=== PATIENT | female | born 1985 | race Hispanic/Latino ===

== ENCOUNTER 2018-06-18 02:56 | Inpatient (IN) | payer OTHER ==
[2018-06-18] MEDS ORDERED: Sodium Chloride 0.9% 1,000 ML IV STA (04:11)
[2018-06-18] MEDS ORDERED: Iohexol 240 (50 ml) PO ONE (04:15)
--- NOTE | 2018-06-18 04:21 | ED PDOC ---
HPI: Abdomen Chief Complaint (Provider): abdominal pain History Per: Patient History/Exam Limitations: no limitations Onset/Duration Of Symptoms: Hrs Current Symptoms Are (Timing): Still Present Location Of Pain/Discomfort: Epigastric, Periumbilical Associated Symptoms: Nausea, Vomiting Last Bowel Movement: Today Additional Complaint(s): 32 y/o female presents for evaluation of abdominal pain x 12 hours. Associated multiple episodes of vomiting. Patient states symptoms started shortly after eating lunch at work (salad, appetizers), and she has not been able to keep anything down since then. Denies fever, cough, congestion, changes in bowel movements, urinary symptoms, recent travel, sick contacts. <Noemy Garcia - Last Filed: 06/18/18 05:57> <Bartolo Zaragoza - Last Filed: 06/18/18 06:29> Time Seen by Provider: 06/18/18 04:00 Chief Complaint (Nursing): Abdominal Pain Past Medical History Reviewed: Historical Data, Nursing Documentation, Vital Signs Vital Signs: Last Vital Signs Temp 98.6 F 06/18/18 03:25 Pulse 86 06/18/18 03:25 Resp 16 06/18/18 03:25 BP 155/87 H 06/18/18 03:25 Pulse Ox 99 06/18/18 03:25 Primary Care Provider: Brayden Del Rosario - Medical History PMH: No Chronic Diseases - Surgical History Surgical History: No Surg Hx - Family History Family History: States: No Known Family Hx - Living Arrangements Living Arrangements: With Family <Noemy Garcia - Last Filed: 06/18/18 05:57> Vital Signs: Last Vital Signs Temp 98.6 F 06/18/18 03:25 Pulse 86 06/18/18 03:25 Resp 16 06/18/18 03:25 BP 155/87 H 06/18/18 03:25 Pulse Ox 99 06/18/18 05:57 <Bartolo Zaragoza - Last Filed: 06/18/18 06:29> - Allergies Allergies/Adverse Reactions: Allergies Allergy/AdvReac Type Severity Reaction Status Date / Time No Known Allergies Allergy Verified 06/18/18 04:11 Review of Systems ROS Statement: Except As Marked, All Systems Reviewed And Found Negative Gastrointestinal: Positive for: Nausea, Vomiting, Abdominal Pain <Noemy Garcia - Last Filed: 06/18/18 05:57> Physical Exam - Reviewed Nursing Documentation Reviewed: Yes Vital Signs Reviewed: Yes - Physical Exam Appears: Positive for: Well, Non-toxic, No Acute Distress Head Exam: Positive for: ATRAUMATIC, NORMAL INSPECTION, NORMOCEPHALIC Skin: Positive for: Normal Color Eye Exam: Positive for: Normal appearance ENT: Positive for: Normal ENT Inspection Cardiovascular/Chest: Positive for: Regular Rate, Rhythm Respiratory: Positive for: Normal Breath Sounds Gastrointestinal/Abdominal: Positive for: Bowel Sounds, Soft, Tenderness (periumbilical, epigastric) Back: Positive for: Normal Inspection Extremity: Positive for: Normal ROM Neurological/Psych: Positive for: Awake, Alert, Oriented (x3) <JoseNoemy C - Last Filed: 06/18/18 05:57> - Laboratory Results Result Diagrams: 06/18/18 04:42 06/18/18 04:42 - ECG O2 Sat by Pulse Oximetry: 99 - Progress ED Course And Treament: -upreg -cbc -cmp -lipase -urinalysis -CT abd/pelvis -IV NS bolus -IV zofran -IV pepcid <Noemy Garcia C - Last Filed: 06/18/18 05:57> - Laboratory Results Result Diagrams: 06/18/18 04:42 06/18/18 04:42 Lab Results: Total Bilirubin 1.1 mg/dl (0.2-1.3) 06/18/18 04:42 AST 99 U/L (14-36) H 06/18/18 04:42 ALT 59 U/L (9-52) H 06/18/18 04:42 Alkaline Phosphatase 41 U/L (38-126) 06/18/18 04:42 Total Protein 7.3 G/DL (6.3-8.2) 06/18/18 04:42 Albumin 4.3 g/dL (3.5-5.0) 06/18/18 04:42 Globulin 3.1 gm/dL (2.2-3.9) 06/18/18 04:42 Albumin/Globulin Ratio 1.4 (1.0-2.1) 06/18/18 04:42 Lipase 47 U/L (23-300) 06/18/18 04:42 Urine Color Jillian (YELLOW) 06/18/18 04:32 Urine Clarity Slighty-cloudy (Clear) 06/18/18 04:32 Urine pH 6.0 (5.0-8.0) 06/18/18 04:32 Ur Specific [place] 1.028 (1.003-1.030) 06/18/18 04:32 Urine Protein Negative mg/dL (NEGATIVE) 06/18/18 04:32 Urine Glucose (UA) Neg mg/dL (NEGATIVE) 06/18/18 04:32 Urine Ketones 20 mg/dL (NEGATIVE) 06/18/18 04:32 Urine Blood Negative (NEGATIVE) 06/18/18 04:32 Urine Nitrate Negative (NEGATIVE) 06/18/18 04:32 Urine Bilirubin Negative (NEGATIVE) 06/18/18 04:32 Urine Urobilinogen 2.0 mg/dL (0.2-1.0) H 06/18/18 04:32 Ur Leukocyte Esterase Neg Maxi/uL (Negative) 06/18/18 04:32 Urine RBC (Auto) 4 /hpf (0-3) H 06/18/18 04:32 Urine Microscopic WBC 2 /hpf (0-5) 06/18/18 04:32 Ur Squamous Epith Cells 4 /hpf (0-5) 06/18/18 04:32 Urine Bacteria Occ (<OCC) H 06/18/18 04:32 <Bartolo Zaragoza - Last Filed: 06/18/18 06:29> Medical Decision Making Medical Decision Makin:00 Patient signed out to Dr. Van pending CT, re-evaluation and final disposition. <Bartolo Zaragoza - Last Filed: 06/18/18 06:29> Disposition - Disposition Disposition Time: 06:00 Patient Signed Over To: Bartolo Zaragoza Handoff Comments: pending CT, re-eval <Noemy Garcia - Last Filed: 06/18/18 05:57> - Patient ED Disposition Is Patient to be Admitted: Transfer of Care - Disposition Disposition: Transfer of Care Disposition Time: 07:00 Patient Signed Over To: Colton Van Handoff Comments: pending CT and re-evaluation <Bartolo Zaragoza - Last Filed: 06/18/18 06:29> - Clinical Impression Clinical Impression: Abdominal pain - Disposition Referrals: Brayden Del Rosario MD [Primary Care Provider] - Condition: STABLE Forms: [employer] (French)
[2018-06-18 05:12] LABS: BASO % 0.1 % (0.0-2.0); HEMOGLOBIN 13.4 g/dL (12.0-16.0); LYMPH # 0.9 K/uL (1.0-4.3); LYMPH % 8.1 % (20.0-40.0); MEAN CELL VOLUME 96.6 fl (81.0-99.0); MEAN CORPUSCULAR HEMOGLOBIN 33.5 pg (27.0-31.0); MEAN CORPUSCULAR HGB CONC 34.6 g/dL (33.0-37.0); MEAN PLATELET VOLUME 8.4 fl (7.2-11.7); MONO # 0.5 K/uL (0.0-0.8); MONO % 4.3 % (0.0-10.0); NEUT # 9.5 K/uL (1.8-7.0); NEUT % 87.5 % (50.0-75.0); PLATELET COUNT 250 K/uL (130-400); RBC 3.99 Mil/uL (3.80-5.20); RED CELL DISTRIBUTION WIDTH 12.9 % (11.5-14.5); WHITE BLOOD COUNT 10.9 K/uL (4.8-10.8)
[2018-06-18 05:17] LABS: SQUAMOUS EPITHIAL 4 /hpf (0-5); URINE BACTERIA OCC (<OCC); URINE BILIRUBIN NEGATIVE (NEGATIVE); URINE BLOOD NEGATIVE (NEGATIVE); URINE CLARITY SLIGHTY-CLOUDY (Clear); URINE COLOR AMBER (YELLOW); URINE GLUCOSE (UA) NEG (NEGATIVE); URINE LEUKOCYTE ESTERASE NEG Leu/uL (Negative); URINE PROTEIN NEGATIVE (NEGATIVE)
[2018-06-18 05:20] LABS: ALB/GLOB RATIO 1.4 (1.0-2.1); ALBUMIN 4.3 g/dL (3.5-5.0); ALT/SGPT 59 U/L (9-52); AST/SGOT 99 U/L (14-36); BLOOD UREA NITROGEN 10 mg/dl (7-17); CALCIUM 9.3 mg/dL (8.4-10.2); GFR NON-AFRICAN AMERICAN > 60; LIPASE 47 U/L (23-300)
[2018-06-18] MEDS ORDERED: Sodium Chloride 0.9% 50 ML IV ONE (06:04)
[2018-06-18] MEDS ORDERED: Iohexol 300 100 ML IJ ONE (06:04)
[2018-06-18 06:58] LABS: LYMPHOCYTE 3 % (20-50); MONOCYTE 7 % (0-10); NEUTROPHIL 90 % (42-75); PLATELET ESTIMATE NORMAL (NORMAL); TOTAL CELLS COUNTED 100
[2018-06-18 06:59] LABS: HYPOCHROMIC SLIGHT; LARGE PLATELETS PRESENT; STOMATOCYTES SLIGHT
--- NOTE | 2018-06-18 07:04 | ED PDOC ---
- Laboratory Results Result Diagrams: 06/18/18 04:42 06/18/18 04:42 Lab Results: Total Bilirubin 1.1 mg/dl (0.2-1.3) 06/18/18 04:42 AST 99 U/L (14-36) H 06/18/18 04:42 ALT 59 U/L (9-52) H 06/18/18 04:42 Alkaline Phosphatase 41 U/L (38-126) 06/18/18 04:42 Total Protein 7.3 G/DL (6.3-8.2) 06/18/18 04:42 Albumin 4.3 g/dL (3.5-5.0) 06/18/18 04:42 Globulin 3.1 gm/dL (2.2-3.9) 06/18/18 04:42 Albumin/Globulin Ratio 1.4 (1.0-2.1) 06/18/18 04:42 Lipase 47 U/L (23-300) 06/18/18 04:42 Urine Color Jillian (YELLOW) 06/18/18 04:32 Urine Clarity Slighty-cloudy (Clear) 06/18/18 04:32 Urine pH 6.0 (5.0-8.0) 06/18/18 04:32 Ur Specific [place] 1.028 (1.003-1.030) 06/18/18 04:32 Urine Protein Negative mg/dL (NEGATIVE) 06/18/18 04:32 Urine Glucose (UA) Neg mg/dL (NEGATIVE) 06/18/18 04:32 Urine Ketones 20 mg/dL (NEGATIVE) 06/18/18 04:32 Urine Blood Negative (NEGATIVE) 06/18/18 04:32 Urine Nitrate Negative (NEGATIVE) 06/18/18 04:32 Urine Bilirubin Negative (NEGATIVE) 06/18/18 04:32 Urine Urobilinogen 2.0 mg/dL (0.2-1.0) H 06/18/18 04:32 Ur Leukocyte Esterase Neg Maxi/uL (Negative) 06/18/18 04:32 Urine RBC (Auto) 4 /hpf (0-3) H 06/18/18 04:32 Urine Microscopic WBC 2 /hpf (0-5) 06/18/18 04:32 Ur Squamous Epith Cells 4 /hpf (0-5) 06/18/18 04:32 Urine Bacteria Occ (<OCC) H 06/18/18 04:32 - ECG O2 Sat by Pulse Oximetry: 99 - Progress Re-evaluation Time: 07:30 Condition: Re-examined, Improved (patient is feeling improved. Less pain. Comfortable. VS stable. ) Medical Decision Making Medical Decision Makin: Patient signed out to Dr. Van. Pending CT results, possible abdominal ultrasound. 0750: CT SCAN OF THE ABDOMEN AND PELVIS WITH CONTRAST. CLINICAL HISTORY: Abdominal pain. TECHNIQUE: Multiple axial and coronal CT images were obtained through the abdomen and pelvis after administration of intravenous and oral contrast material. COMMENTS: Diffuse thickening of the bladder, probably mild cystitis. Cholelithiasis. Diffuse thickening and enhancement of the wall of the gallbladder, probably mild acute cholecystitis. Uncomplicated colonic diverticulosis. The liver is of uniform attenuation without mass or defect. There is no intra or extrahepatic biliary ductal dilatation. The spleen is normal. The pancreas is of normal contour and attenuation characteristics. There is no evidence of adrenal mass. Both kidneys demonstrate prompt and equal nephrograms. The kidneys are normal in size, shape and configuration. There is no evidence of renal or ureteral mass. No renal or ureteral calculi are identified. There is no hydroureter or hydronephrosis. No evidence for appendicitis. There is no bowel wall thickening. No evidence for small or large bowel obstruction. There is no evidence of abdominal ascites or lymphadenopathy. There is no evidence of intrinsic or extrinsic bladder mass. There is no pelvic ascites or lymphadenopathy. Images of the lung bases show no evidence of pleural or parenchymal mass. There are no pleural effusions. The bony structures are free of lytic or blastic lesions. IMPRESSION: Diffuse thickening of the bladder, probably mild cystitis. Cholelithiasis. Diffuse thickening and enhancement of the wall of the gallbladder, probably mild acute cholecystitis. Uncomplicated colonic diverticulosis. 0800 Discussed with surgical technologist who will see patient in ED and discussed with Dr Jonathan hayward. Discussed with MARTHA Braga for admission. Disposition Discussed With : Shivam Braga Doctor Will See Patient In The: Hospital Counseled Patient/Family Regarding: Studies Performed (acute chioel), Diagnosis - Clinical Impression Clinical Impression: Abdominal pain, Acute cholecystitis, Sepsis - POA Present On Arrival: None - Disposition Disposition: Admitted as In-Patient Disposition Time: 07:50 Condition: FAIR
[2018-06-18] MEDS ORDERED: Piperacillin/Tazobact 3.375 GM in Sodium Chloride 0.9% 100 ML IVPB STA (07:52)
[2018-06-18] MEDS ORDERED: Piperacillin/Tazobact 3.375 gm Inj IVPB ONE (08:08)
[2018-06-18 08:19] LABS: VENOUS BLOOD GAS BASE EXCESS 3.3 mmol/L (0.0-2.0); VENOUS BLOOD GAS PCO2 48 mmHg (40-60); VENOUS BLOOD GAS PO2 26 mm/Hg (30-55); VENOUS BLOOD PH 7.39 (7.32-7.43)
--- NOTE | 2018-06-18 08:39 | CP.PCM.CON ---
<Mulugeta Calzada - Last Filed: 06/18/18 08:45> History of Present Illness - History of Present Illness History of Present Illness: General Surgery Consult for Dr. Castillo Reason for consult: abd pain, n/v suspected acute cholecystitis 32 F with no significant PMH presents to [facility] for complaint of epigastric abd pain and nausea/vomiting. Patient seen and evaluatyed in the ED. Patient states that yesterday she went to event for work where they had various appetizers. About an hour after the meal patient developed the abd pain and became nauseous. Later she tried to eat a salad but was unable to complete it. At that time, developed multiple episodes of nausea/vomiting. Patient ubered home from work. At home, patient and nausea/vomiting continued. Patient tried to eat a bagel around 8pm and it worsened her symptoms. Patient state that symptoms persisted until 2:45 AM today then came into ED. Patient stated pain is constant and sharp in epigastrium radiating to RUQ. Denies fevers but admits chills. Denies cp, SOB, palpitations, diarrhea, constipation, urinary symptoms. PMH: denies PSH: denies ALL: NKDA Social: control patch, denies tobacc/illicit drug use, occasional ETOH Review of Systems - Review of Systems All systems: reviewed and no additional remarkable complaints except (as per HPI) Past Patient History - Past Social History Smoking Status: Never Smoked - PSYCHIATRIC Hx Substance Use: No - SURGICAL HISTORY Hx Surgeries: No Meds Allergies/Adverse Reactions: Allergies Allergy/AdvReac Type Severity Reaction Status Date / Time No Known Allergies Allergy Verified 06/18/18 04:11 - Medications Medications: Current Medications Piperacillin Sod/Tazobactam (Sod 3.375 gm/ Sodium Chloride) 100 mls @ 100 mls/hr IVPB STAT STA; Protocol Stop: 06/18/18 08:51 Last Admin: 06/18/18 08:17 Dose: 100 mls/hr Lactated Ringer's (Lactated Ringer's) 1,000 mls @ 125 mls/hr IV .Q8H DORIE Piperacillin Sod/Tazobactam (Sod 3.375 gm/ Sodium Chloride) 100 mls @ 100 mls/hr IVPB Q6H DORIE; Protocol Morphine Sulfate (Morphine) 2 mg IVP Q4 PRN PRN Reason: Pain, severe (8-10) Ondansetron HCl (Zofran Inj) 4 mg IVP Q4 PRN PRN Reason: Nausea/Vomiting Physical Exam - Constitutional Appears: Non-toxic, No Acute Distress - Head Exam Head Exam: ATRAUMATIC, NORMOCEPHALIC - Eye Exam Eye Exam: EOMI, Normal appearance Pupil Exam: PERRL - ENT Exam ENT Exam: Mucous Membranes Moist - Respiratory Exam Respiratory Exam: NORMAL BREATHING PATTERN - Cardiovascular Exam Cardiovascular Exam: REGULAR RHYTHM - GI/Abdominal Exam GI & Abdominal Exam: Normal Bowel Sounds, Soft, Tenderness (RUQ/epigastric). absent: Distended, Firm, Guarding, Hernia, Rebound, Rigid - Extremities Exam Extremities exam: Positive for: normal capillary refill, pedal pulses present - Back Exam Back exam: absent: CVA tenderness (L), CVA tenderness (R) - Neurological Exam Neurological exam: Alert, CN II-XII Intact, Oriented x3 - Psychiatric Exam Psychiatric exam: Normal Affect, Normal Mood - Skin Skin Exam: Dry, Intact, Normal Color, Warm Results - Vital Signs Recent Vital Signs: Last Vital Signs Temp 98.7 F 06/18/18 08:12 Pulse 72 06/18/18 08:12 Resp 16 06/18/18 08:12 BP 120/89 06/18/18 08:12 Pulse Ox 99 06/18/18 08:14 - Labs Result Diagrams: 06/18/18 04:42 06/18/18 04:42 Labs: Laboratory Results - last 24 hr 06/18/18 06/18/18 06/18/18 04:32 04:42 04:42 WBC 10.9 H RBC 3.99 Hgb 13.4 Hct 38.6 MCV 96.6 MCH 33.5 H MCHC 34.6 RDW 12.9 Plt Count 250 MPV 8.4 Neut % (Auto) 87.5 H Lymph % (Auto) 8.1 L Desha % (Auto) 4.3 Eos % (Auto) 0.0 Baso % (Auto) 0.1 Neut # (Auto) 9.5 H Lymph # (Auto) 0.9 L Desha # (Auto) 0.5 Eos # (Auto) 0.0 Baso # (Auto) 0.0 Neutrophils % (Manual) 90 H Lymphocytes % (Manual) 3 L Monocytes % (Manual) 7 Platelet Estimate Normal Large Platelets Present Hypochromasia (manual) Slight Stomatocytes Slight pO2 VBG pH VBG pCO2 VBG HCO3 VBG Total CO2 VBG O2 Sat (Calc) VBG Base Excess VBG Potassium Glucose Lactate FiO2 Sodium 136 Potassium 3.9 Chloride 100 Carbon Dioxide 27 Anion Gap 13 BUN 10 Creatinine 0.5 L Est GFR ( Amer) > 60 Est GFR (Non-Af Amer) > 60 Random Glucose 120 H Calcium 9.3 Total Bilirubin 1.1 AST 99 H ALT 59 H Alkaline Phosphatase 41 Total Protein 7.3 Albumin 4.3 Globulin 3.1 Albumin/Globulin Ratio 1.4 Lipase 47 Venous Blood Potassium Urine Color Jillian Urine Clarity Slighty-cloudy Urine pH 6.0 Ur Specific [place] 1.028 Urine Protein Negative Urine Glucose (UA) Neg Urine Ketones 20 Urine Blood Negative Urine Nitrate Negative Urine Bilirubin Negative Urine Urobilinogen 2.0 H Ur Leukocyte Esterase Neg Urine RBC (Auto) 4 H Urine Microscopic WBC 2 Ur Squamous Epith Cells 4 Urine Bacteria Occ H 06/18/18 07:53 WBC RBC Hgb Hct MCV MCH MCHC RDW Plt Count MPV Neut % (Auto) Lymph % (Auto) Desha % (Auto) Eos % (Auto) Baso % (Auto) Neut # (Auto) Lymph # (Auto) Desha # (Auto) Eos # (Auto) Baso # (Auto) Neutrophils % (Manual) Lymphocytes % (Manual) Monocytes % (Manual) Platelet Estimate Large Platelets Hypochromasia (manual) Stomatocytes pO2 26 L VBG pH 7.39 VBG pCO2 48 VBG HCO3 26.2 VBG Total CO2 30.6 H VBG O2 Sat (Calc) 52.7 VBG Base Excess 3.3 H VBG Potassium 4.3 Glucose 111 H Lactate 0.8 FiO2 21.0 Sodium 137.0 Potassium Chloride 105.0 Carbon Dioxide Anion Gap BUN Creatinine Est GFR ( Amer) Est GFR (Non-Af Amer) Random Glucose Calcium Total Bilirubin AST ALT Alkaline Phosphatase Total Protein Albumin Globulin Albumin/Globulin Ratio Lipase Venous Blood Potassium 4.3 Urine Color Urine Clarity Urine pH Ur Specific [place] Urine Protein Urine Glucose (UA) Urine Ketones Urine Blood Urine Nitrate Urine Bilirubin Urine Urobilinogen Ur Leukocyte Esterase Urine RBC (Auto) Urine Microscopic WBC Ur Squamous Epith Cells Urine Bacteria Assessment & Plan - Assessment and Plan (Free Text) Assessment: 32 F with RUQ/epigastric abd pain with CT findings of thickened gB wall and cholelithiasis Plan: -NPO -IVF -IV abx -PAin contorl -Antiemtics PRN -f/u ABUS -Possibly acute cholecystitis -Possible OR for laparoscopic cholecystectomy -Further recs as per Dr. Jonathan Calzada PGY2 - Date & Time Date: 06/18/18 Time: 08:48 <Ezequiel Hutson - Last Filed: 06/18/18 11:15> Meds - Medications Medications: Current Medications Lactated Ringer's (Lactated Ringer's) 1,000 mls @ 125 mls/hr IV .Q8H DORIE Ampicillin Sodium/Sulbactam (Sodium 1.5 gm/ Sodium Chloride) 100 mls @ 100 mls/hr IVPB Q6 DORIE; Protocol Morphine Sulfate (Morphine) 2 mg IVP Q4 PRN PRN Reason: Pain, severe (8-10) Ondansetron HCl (Zofran Inj) 4 mg IVP Q4 PRN PRN Reason: Nausea/Vomiting Results - Vital Signs Recent Vital Signs: Last Vital Signs Temp 98.7 F 06/18/18 08:44 Pulse 72 06/18/18 08:44 Resp 16 06/18/18 08:44 BP 120/89 06/18/18 08:44 Pulse Ox 99 06/18/18 10:56 - Labs Result Diagrams: 06/18/18 04:42 06/18/18 04:42 Labs: Laboratory Results - last 24 hr 06/18/18 06/18/18 06/18/18 04:32 04:42 04:42 WBC 10.9 H RBC 3.99 Hgb 13.4 Hct 38.6 MCV 96.6 MCH 33.5 H MCHC 34.6 RDW 12.9 Plt Count 250 MPV 8.4 Neut % (Auto) 87.5 H Lymph % (Auto) 8.1 L Desha % (Auto) 4.3 Eos % (Auto) 0.0 Baso % (Auto) 0.1 Neut # (Auto) 9.5 H Lymph # (Auto) 0.9 L Desha # (Auto) 0.5 Eos # (Auto) 0.0 Baso # (Auto) 0.0 Neutrophils % (Manual) 90 H Lymphocytes % (Manual) 3 L Monocytes % (Manual) 7 Platelet Estimate Normal Large Platelets Present Hypochromasia (manual) Slight Stomatocytes Slight PT INR APTT pO2 VBG pH VBG pCO2 VBG HCO3 VBG Total CO2 VBG O2 Sat (Calc) VBG Base Excess VBG Potassium Glucose Lactate FiO2 Sodium 136 Potassium 3.9 Chloride 100 Carbon Dioxide 27 Anion Gap 13 BUN 10 Creatinine 0.5 L Est GFR ( Amer) > 60 Est GFR (Non-Af Amer) > 60 Random Glucose 120 H Calcium 9.3 Total Bilirubin 1.1 AST 99 H ALT 59 H Alkaline Phosphatase 41 Total Protein 7.3 Albumin 4.3 Globulin 3.1 Albumin/Globulin Ratio 1.4 Lipase 47 Venous Blood Potassium Urine Color Jillian Urine Clarity Slighty-cloudy Urine pH 6.0 Ur Specific [place] 1.028 Urine Protein Negative Urine Glucose (UA) Neg Urine Ketones 20 Urine Blood Negative Urine Nitrate Negative Urine Bilirubin Negative Urine Urobilinogen 2.0 H Ur Leukocyte Esterase Neg Urine RBC (Auto) 4 H Urine Microscopic WBC 2 Ur Squamous Epith Cells 4 Urine Bacteria Occ H Blood Type Antibody Screen BBK History Checked 06/18/18 06/18/18 06/18/18 07:53 09:19 10:20 WBC RBC Hgb Hct MCV MCH MCHC RDW Plt Count MPV Neut % (Auto) Lymph % (Auto) Desha % (Auto) Eos % (Auto) Baso % (Auto) Neut # (Auto) Lymph # (Auto) Desha # (Auto) Eos # (Auto) Baso # (Auto) Neutrophils % (Manual) Lymphocytes % (Manual) Monocytes % (Manual) Platelet Estimate Large Platelets Hypochromasia (manual) Stomatocytes PT 11.9 INR 1.0 APTT 26.5 pO2 26 L VBG pH 7.39 VBG pCO2 48 VBG HCO3 26.2 VBG Total CO2 30.6 H VBG O2 Sat (Calc) 52.7 VBG Base Excess 3.3 H VBG Potassium 4.3 Glucose 111 H Lactate 0.8 FiO2 21.0 Sodium 137.0 Potassium Chloride 105.0 Carbon Dioxide Anion Gap BUN Creatinine Est GFR ( Amer) Est GFR (Non-Af Amer) Random Glucose Calcium Total Bilirubin AST ALT Alkaline Phosphatase Total Protein Albumin Globulin Albumin/Globulin Ratio Lipase Venous Blood Potassium 4.3 Urine Color Urine Clarity Urine pH Ur Specific [place] Urine Protein Urine Glucose (UA) Urine Ketones Urine Blood Urine Nitrate Urine Bilirubin Urine Urobilinogen Ur Leukocyte Esterase Urine RBC (Auto) Urine Microscopic WBC Ur Squamous Epith Cells Urine Bacteria Blood Type A POSITIVE Antibody Screen Negative BBK History Checked No verified bt <Rafael Burrell - Last Filed: 06/18/18 11:32> History of Present Illness - History of Present Illness History of Present Illness: Patient was seen and examined at the bedside. Agree with resident's note above. Meds - Medications Medications: Current Medications Lactated Ringer's (Lactated Ringer's) 1,000 mls @ 125 mls/hr IV .Q8H DORIE Ampicillin Sodium/Sulbactam (Sodium 1.5 gm/ Sodium Chloride) 100 mls @ 100 mls/hr IVPB Q6 DORIE; Protocol Morphine Sulfate (Morphine) 2 mg IVP Q4 PRN PRN Reason: Pain, severe (8-10) Ondansetron HCl (Zofran Inj) 4 mg IVP Q4 PRN PRN Reason: Nausea/Vomiting Physical Exam - GI/Abdominal Exam GI & Abdominal Exam: Normal Bowel Sounds, Soft Additional comments: epigastric/RUQ tenderness, ND, no rebound, no guarding Results - Vital Signs Recent Vital Signs: Last Vital Signs Temp 98.7 F 06/18/18 08:44 Pulse 72 06/18/18 08:44 Resp 16 06/18/18 08:44 BP 120/89 06/18/18 08:44 Pulse Ox 99 06/18/18 10:56 - Labs Result Diagrams: 06/18/18 04:42 06/18/18 04:42 Labs: Laboratory Results - last 24 hr 06/18/18 06/18/18 06/18/18 04:32 04:42 04:42 WBC 10.9 H RBC 3.99 Hgb 13.4 Hct 38.6 MCV 96.6 MCH 33.5 H MCHC 34.6 RDW 12.9 Plt Count 250 MPV 8.4 Neut % (Auto) 87.5 H Lymph % (Auto) 8.1 L Desha % (Auto) 4.3 Eos % (Auto) 0.0 Baso % (Auto) 0.1 Neut # (Auto) 9.5 H Lymph # (Auto) 0.9 L Desha # (Auto) 0.5 Eos # (Auto) 0.0 Baso # (Auto) 0.0 Neutrophils % (Manual) 90 H Lymphocytes % (Manual) 3 L Monocytes % (Manual) 7 Platelet Estimate Normal Large Platelets Present Hypochromasia (manual) Slight Stomatocytes Slight PT INR APTT pO2 VBG pH VBG pCO2 VBG HCO3 VBG Total CO2 VBG O2 Sat (Calc) VBG Base Excess VBG Potassium Glucose Lactate FiO2 Sodium 136 Potassium 3.9 Chloride 100 Carbon Dioxide 27 Anion Gap 13 BUN 10 Creatinine 0.5 L Est GFR ( Amer) > 60 Est GFR (Non-Af Amer) > 60 Random Glucose 120 H Calcium 9.3 Total Bilirubin 1.1 AST 99 H ALT 59 H Alkaline Phosphatase 41 Total Protein 7.3 Albumin 4.3 Globulin 3.1 Albumin/Globulin Ratio 1.4 Lipase 47 Venous Blood Potassium Urine Color Jillian Urine Clarity Slighty-cloudy Urine pH 6.0 Ur Specific [place] 1.028 Urine Protein Negative Urine Glucose (UA) Neg Urine Ketones 20 Urine Blood Negative Urine Nitrate Negative Urine Bilirubin Negative Urine Urobilinogen 2.0 H Ur Leukocyte Esterase Neg Urine RBC (Auto) 4 H Urine Microscopic WBC 2 Ur Squamous Epith Cells 4 Urine Bacteria Occ H Blood Type Antibody Screen BBK History Checked 06/18/18 06/18/18 06/18/18 07:53 09:19 10:20 WBC RBC Hgb Hct MCV MCH MCHC RDW Plt Count MPV Neut % (Auto) Lymph % (Auto) Desha % (Auto) Eos % (Auto) Baso % (Auto) Neut # (Auto) Lymph # (Auto) Desha # (Auto) Eos # (Auto) Baso # (Auto) Neutrophils % (Manual) Lymphocytes % (Manual) Monocytes % (Manual) Platelet Estimate Large Platelets Hypochromasia (manual) Stomatocytes PT 11.9 INR 1.0 APTT 26.5 pO2 26 L VBG pH 7.39 VBG pCO2 48 VBG HCO3 26.2 VBG Total CO2 30.6 H VBG O2 Sat (Calc) 52.7 VBG Base Excess 3.3 H VBG Potassium 4.3 Glucose 111 H Lactate 0.8 FiO2 21.0 Sodium 137.0 Potassium Chloride 105.0 Carbon Dioxide Anion Gap BUN Creatinine Est GFR ( Amer) Est GFR (Non-Af Amer) Random Glucose Calcium Total Bilirubin AST ALT Alkaline Phosphatase Total Protein Albumin Globulin Albumin/Globulin Ratio Lipase Venous Blood Potassium 4.3 Urine Color Urine Clarity Urine pH Ur Specific [place] Urine Protein Urine Glucose (UA) Urine Ketones Urine Blood Urine Nitrate Urine Bilirubin Urine Urobilinogen Ur Leukocyte Esterase Urine RBC (Auto) Urine Microscopic WBC Ur Squamous Epith Cells Urine Bacteria Blood Type A POSITIVE Antibody Screen Negative BBK History Checked No verified bt Assessment & Plan - Assessment and Plan (Free Text) Assessment: 32 y.o. female with acute cholecystitis Plan: - Keep NPO - To OR for cholecystectomy
[2018-06-18 10:35] LABS: PROTHROMBIN TIME 11.9 Seconds (9.8-13.1)
[2018-06-18 10:38] LABS: PARTIAL THROMBOPLASTIN TIME 26.5 Seconds (25.6-37.1)
[2018-06-18] MEDS ORDERED: Bupivacaine 0.5% Inj(30mL) ONE (11:15)
[2018-06-18] MEDS ORDERED: Propofol 10 mg/ml Inj (20 ML) ONE (11:28)
[2018-06-18] MEDS ORDERED: Rocuronium 10 mg/ml (5 ml) ONE (11:28)
[2018-06-18] MEDS ORDERED: Dexamethasone 4 mg/1 ml ONE (11:28)
[2018-06-18] MEDS ORDERED: Succinylcholine Chloride 20 mg/ml Syr (5 ml) IV ONE (11:30)
--- NOTE | 2018-06-18 11:31 | US ---
Date of service: 06/18/2018 HISTORY: epigastric pain possibel narinder COMPARISON: Abdomen and pelvis CT with contrast 06/18/2018. TECHNIQUE: Sonographic evaluation of the right upper quadrant of the abdomen. FINDINGS: LIVER: Measures 14.6 cm in length. Normal echogenicity of the liver parenchyma. No mass. No intrahepatic bile duct dilatation. GALLBLADDER: Gallbladder is moderately distended with a large calculus in the lumen measuring 3.5 cm greatest dimension. No prominent mural thickening is evident and there is no pericholecystic fluid collection evident. No reported sonographic Mathew sign. COMMON BILE DUCT: Measures 8.7 mm. No stones. No dilatation. PANCREAS: The tail of the pancreas is obscured by overlying bowel gas with remainder unremarkable. RIGHT KIDNEY: Measures 11.7 cm in length. Normal echogenicity. No calculus, mass, or hydronephrosis. AORTA: No aneurysmal dilatation. IVC: Unremarkable. OTHER FINDINGS: None . IMPRESSION: Prominent cholelithiasis within a distended gallbladder which is otherwise unremarkable appearing. Clinically correlate further. Dilated CBD without choledocholithiasis or intrahepatic biliary dilatation appreciated. Consider possible follow-up nuclear pattern biliary scan for added characterization of common bile duct or MRCP.
[2018-06-18] MEDS ORDERED: Lactated Ringer's 1,000 ML IV ONE ×2 (11:35→12:50)
--- NOTE | 2018-06-18 11:35 | CT ---
Date of service: 06/18/2018 PROCEDURE: CT Abdomen and Pelvis with contrast HISTORY: abd pain, vomiting COMPARISON: None. TECHNIQUE: Following oral and intravenous contrast administration, a CT examination of the abdomen and pelvis was performed from the domes of the diaphragms to the symphysis pubis with reformatted datasets provided not only axial but also sagittal and coronal series. Contrast dose: Omnipaque 300, 90 cc Radiation dose: Total exam DLP = 351.86 mGy-cm. This CT exam was performed using one or more of the following dose reduction techniques: Automated exposure control, adjustment of the mA and/or kV according to patient size, and/or use of iterative reconstruction technique. FINDINGS: LOWER THORAX: Unremarkable. LIVER: Unremarkable. No gross lesion or ductal dilatation. GALLBLADDER AND BILE DUCTS: Prominent cholelithiasis identified within the gallbladder which is otherwise unremarkable appearing. PANCREAS: Unremarkable. No gross lesion or ductal dilatation. SPLEEN: A small 7 mm lucency seen at the inferior margins of the spleen with the spleen otherwise unremarkable. ADRENALS: Unremarkable. No mass. KIDNEYS AND URETERS: Unremarkable. No hydronephrosis. No solid mass. VASCULATURE: Unremarkable. No aortic aneurysm. No aortic atherosclerotic calcification or mural plaque present. BOWEL: Questionable sigmoid diverticulosis though no definite diverticulitis pattern is identified. No obstruction. No gross mural thickening. APPENDIX: Normal appendix. PERITONEUM: Unremarkable. No free fluid. No free air. LYMPH NODES: Unremarkable. No enlarged lymph nodes. BLADDER: Urinary bladder is not fully distended with limited thickening of the wall difficult to exclude. Clinically correlate for potential cystitis though this could be a function incomplete distension. REPRODUCTIVE: Unremarkable. BONES: No acute fracture. OTHER FINDINGS: None. IMPRESSION: Cholelithiasis is prominent within a distended gallbladder. Clinically correlate for potential acute cholecystitis though this is not definite. Follow-up nuclear better scan may be useful for added characterization. Incomplete distention of the urinary bladder limits evaluation of the wall. Cystitis difficult to completely exclude. Clinically correlate further. Preliminary report provided by Meera, 06/18/2018, 7:09 a.m..
--- NOTE | 2018-06-18 11:42 | HP ---
HISTORY OF PRESENT ILLNESS: The patient admitted this morning for acute cholecystitis, cholelithiasis, at present is comfortable in bed, was eating salad with grilled chicken in it when started with right upper quadrant burning yesterday, came to the ER overnight. States has had infrequent episodes of discomfort in the right upper quadrant, not as bad as this episode. No medical or surgical history is reported. Labs and imaging reviewed. REVIEW OF SYSTEMS: Right upper quadrant pain. PHYSICAL EXAMINATION: CONSTITUTIONAL: Awake, alert, oriented. HEENT: Normal. CARDIAC: S1, S2. Regular rate and rhythm. No murmurs, rubs, or gallops. LUNGS: Clear in all rm bilaterally. ABDOMEN: Soft, nontender except for very mild tenderness in the right upper quadrant. Bowel sounds x4. EXTREMITIES: Distal pulses, motor sensation is intact. Cap refill is brisk for the extremities exam. DIAGNOSES AND PLAN: Cholecystitis, cholelithiasis. The patient is to go to OR today around 12:30. Cleared for surgery. Pain control. Continue IV antibiotic, n.p.o, and hydration. Deposition as per Surgery postop. Deep venous thrombosis prophylaxis, sequential compression devices and A-hose. LUANN Seo
[2018-06-18] MEDS ORDERED: Neostigmine 1:1000 (1 mg/ml) Inj ONE (12:21)
[2018-06-18] MEDS ORDERED: Desflurane Inhalation Anesthetic Liq (240 ml) ONE (12:34)
[2018-06-18] MEDS ORDERED: Piperacillin/Tazobact 3.375 GM in Sodium Chloride 0.9% 100 ML IVPB SCH (13:00)
[2018-06-18] MEDS ORDERED: Oxycodone/Acetaminophen 5/325 mg Tab PO PRN (13:11)
--- NOTE | 2018-06-18 13:11 | PCM.SURG1 ---
Surgeon's Initial Post Op Note - Surgeon's Notes Surgeon: Dr. Hutson Therapeutic Recreation Director: Dr. Dann Zavala PGY3 Type of Anesthesia: General Endo Pre-Operative Diagnosis: cholecystitis Operative Findings: see dictation Post-Operative Diagnosis: same Operation Performed: laparoscopic cholecystectomy Specimen/Specimens Removed: gallbladder Estimated Blood Loss: EBL {In ML}: 5 Blood Products Given: N/A Drains Used: No Drains Post-Op Condition: Good Date of Surgery/Procedure: 06/18/18 Time of Surgery/Procedure: 13:11
[2018-06-18 16:35] VITALS: RESP 19
[2018-06-18 16:36] VITALS: BP 115/78; PULSE 65; TEMP 98.2; O2SAT 96
[2018-06-18] MEDS: Lactated Ringer's 1,000 ML IV SCH ×2 (16:54→16:55)
--- NOTE | 2018-06-19 00:16 | OP ---
PROCEDURE DATE: 06/18/2018 PREOPERATIVE DIAGNOSIS: Symptomatic cholelithiasis. POSTOPERATIVE DIAGNOSIS: Chronic cholecystitis. SURGEON: Ezequiel Hutson MD MAINTENANCE CRAFTSMAN: Rafael Burrell MD SECOND MAINTENANCE CRAFTSMAN: Resident, Noemy Quigley DO ANESTHESIA: General, local. FINDINGS: The patient had a distended gallbladder what appears to be chronic cholecystitis. Critical view of safety was obtained. Cystic duct and cystic artery were clearly isolated and transected. SPECIMEN: Gallbladder. ESTIMATED BLOOD LOSS: 10 mL. COMPLICATIONS: None. POSTOPERATIVE CONDITION: Stable. INDICATION AND BRIEF HISTORY OF PROCEDURE: This is a 32-year-old female who presented to the emergency room with a 1-day history of epigastric right upper quadrant pain associated with multiple episodes of nausea and vomiting. The patient had a CAT scan which showed a distended gallbladder with one large stone. The patient had an ultrasound with similar findings. The patient was admitted with diagnosis of symptomatic cholelithiasis and prep for the operating room. The patient was explained the risks and benefits of the procedure, not limited to bleeding, infection, injury to the biliary tract, or injury to surrounding structures. The patient agreed and surgical consent was obtained. DESCRIPTION OF PROCEDURE: On the date of procedure, the patient was brought to the operating room, placed in supine position. Bilateral sequential devices were placed to the lower extremities. The patient was then placed under general endotracheal anesthesia, which she tolerated well. The patient was given 1 mg of Ancef for prophylactic antibiotics. The patient was then prepped and draped in the usual sterile fashion using chlorhexidine prep. After an adequate time-out, the abdomen was entered using a Veress needle which was then insufflated with CO2 with good opening pressures. We then proceeded to make 1-cm infraumbilical vertical incision using a 11-blade scalpel. We then proceeded to place a 11-mm trocar into the abdominal cavity and then placed a 5-mm laparoscope into the abdominal cavity. We performed a diagnostic laparoscopy. No gross pathology was found and no gross injury from initial port site insertion. We then proceeded to place three additional 5-mm ports, one to the subxiphoid area and two to the right abdomen, all under direct visualization. After this, we proceeded to begin the procedure. The gallbladder was retracted up to the right upper quadrant. Using the [place] dissector, we peeled off the peritoneum off the gallbladder in order to identify the cystic duct. We then proceeded to obtain the critical view of safety clearly identifying the cystic duct and cystic artery which each isolated. We then proceeded to place 5-mm clips on each structure two distally and one proximally and then using Endo Grover, each structure was subsequently transected. We then proceeded to remove the gallbladder off the liver bed using the hook cautery. Meticulous attention was paid throughout the removal of the gallbladder to obtain adequate hemostasis. Once the gallbladder was completely removed off, the liver was placed in an EndoCatch bag. We again focused our attention to liver bed to again to verify hemostasis. The liver bed was irrigated with saline, and all irrigation was suctioned off. Having been satisfied with our procedure, we proceeded to remove the gallbladder off the abdomen under direct visualization. We then desufflated the abdominal cavity. All trocars were removed. We then proceeded to close the fascia of the umbilicus using a 0-Vicryl stitch. We then proceeded to infiltrate the port sites using local anesthetic. The skin and the port sites were reapproximated using a 4-0 Monocryl. The abdomen was cleaned and washed. We then placed Dermabond at the laparoscopic port sites. The patient tolerated the procedure well. She was extubated without any complications. She was brought to recovery room in stable condition. At the end of procedure, there was an adequate count to all instruments, lap pads, and needles. Ezequiel Hutson MD
== END 2018-06-18 19:20 | disposition home or self-care (01) | DRG 419 ==
LOC: H.ER 02:56 → H.ERHOLD 07:54 → H.MEDSURG1 09:21
PROVIDERS: ADMIT Family Medicine; ATTEND Family Medicine
PROC: 0FT44ZZ Resection of Gallbladder, Percutaneous Endoscopic Approach (ICD-10-PCS; principal; 2018-06-18 11:30)
DX: K80.10 Calculus of gallbladder with chronic cholecystitis without obstruction (principal); K57.30 Diverticulosis of large intestine without perforation or abscess without bleeding